=== PATIENT | female | born 1990 | race African-American/Black ===

== ENCOUNTER 2021-07-31 13:38 | Emergency (ER) | payer OTHER ==
[~2021-07-31] VITALS: Ht 149.9 cm; Wt 72.6 kg
[~2021-07-31 13:38] MED LIST: ACCUNEB SO1.25 MG/1 INH; AMOXICILLIN875 MG PO; FLONASE 0.05%50 MCG NASAL
[2021-07-31 14:12] LABS: URINE BILIRUBIN NEGATIVE (Negative); URINE BLOOD NEGATIVE (Negative); URINE CLARITY CLOUDY; URINE COLOR YELLOW; URINE GLUCOSE-RANDOM* NEGATIVE (Negative); URINE KETONES NEGATIVE (Negative); URINE LEUKOCYTES-REFLEX 2+ (Negative); URINE NITRITE-REFLEX NEGATIVE (Negative); URINE PROTEIN (DIPSTICK) NEGATIVE (Negative); URINE SPECIFIC GRAVITY 1.025 (1.005-1.035)
[2021-07-31 14:45] VITALS: BP 120/62
[2021-07-31 15:02] LABS: CASTS None Seen /LPF (None Seen); SQUAMOUS >10 Many /LPF (0-3); URINE RBC 3-10 Few /HPF (NONE SEEN); URINE WBC-REFLEX 6-15 Few /HPF (0-5)
[2021-07-31 15:03] LABS: CRYSTALS None Seen /LPF (None Seen)
[2021-08-04] MEDS ORDERED: KEFLEX250 MG PO ×2 (08:00→08:40)
== END 2021-07-31 14:45 | disposition left against medical advice (07) ==
LOC: ER 13:38
PROVIDERS: Emergency Medicine
DX: O26.891 Other specified pregnancy related conditions, first trimester (principal); N89.8 Other specified noninflammatory disorders of vagina; Z3A.01 Less than 8 weeks gestation of pregnancy; J45.909 Unspecified asthma, uncomplicated; G43.909 Migraine, unspecified, not intractable, without status migrainosus; Z98.890 Other specified postprocedural states; Z79.899 Other long term (current) drug therapy; Z79.51 Long term (current) use of inhaled steroids

== ENCOUNTER 2021-08-02 13:15 | Emergency (ER) | payer OTHER ==
[2021-08-02 14:41] LABS: URINE BILIRUBIN NEGATIVE (Negative); URINE BLOOD TRACE (Negative); URINE CLARITY CLEAR; URINE COLOR YELLOW; URINE GLUCOSE-RANDOM* NEGATIVE (Negative); URINE KETONES NEGATIVE (Negative); URINE NITRITE-REFLEX NEGATIVE (Negative); URINE PROTEIN (DIPSTICK) NEGATIVE (Negative); URINE SPECIFIC GRAVITY 1.025 (1.005-1.035); URINE UROBILINOGEN 0.2 E.U./dl (0.2-1.0)
[2021-08-02 14:43] LABS: URINE LEUKOCYTES-REFLEX 1+ (Negative)
[2021-08-02 15:29] LABS: MUCUS 4-6 Moderate strn/LPF (None Seen); SQUAMOUS 4-10 Moderate /LPF (0-3); URINE RBC 1-2 Rare /HPF (NONE SEEN); URINE WBC-REFLEX 0-5 Rare /HPF (0-5)
[2021-08-02 16:43] VITALS: BP 127/84
[2021-08-04] MEDS ORDERED: KEFLEX250 MG PO ×2 (08:00→08:40)
== END 2021-08-02 17:34 | disposition home or self-care (01) ==
LOC: ER 13:15
PROVIDERS: Nurse Practitioner Family
DX: O26.891 Other specified pregnancy related conditions, first trimester (principal); G43.909 Migraine, unspecified, not intractable, without status migrainosus; J45.909 Unspecified asthma, uncomplicated; Z3A.01 Less than 8 weeks gestation of pregnancy; Z98.890 Other specified postprocedural states; Z79.51 Long term (current) use of inhaled steroids; Z79.899 Other long term (current) drug therapy

== ENCOUNTER 2021-08-16 21:27 | Emergency (ER) | payer OTHER ==
[~2021-08-16] VITALS: Ht 149.9 cm; Wt 72.6 kg
[~2021-08-16 21:27] MED LIST changes: +KEFLEX250 MG PO
[2021-08-17 01:00] VITALS: BP 110/58
== END 2021-08-17 01:00 | disposition home or self-care (01) ==
LOC: ER 21:27
DX: O20.0 Threatened abortion (principal); O46.91 Antepartum hemorrhage, unspecified, first trimester; G43.909 Migraine, unspecified, not intractable, without status migrainosus; J45.909 Unspecified asthma, uncomplicated; Z3A.01 Less than 8 weeks gestation of pregnancy; Z79.899 Other long term (current) drug therapy

== ENCOUNTER 2021-12-11 17:11 | Emergency (ER) | payer OTHER ==
[~2021-12-11] VITALS: Ht 149.9 cm; Wt 74.4 kg
[2021-12-11 19:34] LABS: ABSOLUTE NEUTROPHILS 7.4 thou/uL (1.4-8.2); BASOPHILS 0.2 % (0.0-2.0); EOSINOPHILS 0.7 % (0.0-3.0); HEMOGLOBIN 11.7 gm/dL (12.0-15.0); LYMPHOCYTES 4.5 % (24.0-44.0); MCH 30.3 pg (26.0-34.0); MCHC 34.4 g/dL (28.0-37.0); MCV 87.9 fL (80.0-100.0); MONOCYTES 5.7 % (1.0-8.0); PLATELET COUNT 217 thou/uL (150-400); POLYS 88.9 % (36.0-66.0); RBC 3.86 mil/uL (4.20-5.00); RDW 14.1 % (10.5-14.5); WBC 8.4 thou/uL (4.0-11.0)
[2021-12-11 19:40] LABS: ANION GAP 11 mmol/L (7-16); BUN 4 mg/dL (7-18); CALCIUM 8.9 mg/dL (8.5-10.1); CHLORIDE 101 mmol/L (98-107); CO2 23 mmol/L (21-32); CREATININE 0.7 mg/dL (0.6-1.0); GLUCOSE 132 mg/dL (74-106); POTASSIUM 3.6 mmol/L (3.5-5.1); SODIUM 135 mmol/L (136-145)
[2021-12-11 19:46] LABS: ALBUMIN 2.7 g/dL (3.4-5.0); DIRECT BILIRUBIN < 0.1 mg/dL (<0.1-0.2); SGOT 15 U/L (15-37); SGPT 18 U/L (14-59); TOTAL BILIRUBIN 0.2 mg/dL (0.2-1.0); TOTAL PROTEIN 6.3 g/dL (6.4-8.2)
[2021-12-11 21:23] LABS: URINE BILIRUBIN NEGATIVE (Negative); URINE BLOOD NEGATIVE (Negative); URINE CLARITY CLEAR; URINE COLOR YELLOW; URINE GLUCOSE-RANDOM* NEGATIVE (Negative); URINE KETONES NEGATIVE (Negative); URINE NITRITE-REFLEX NEGATIVE (Negative); URINE PROTEIN (DIPSTICK) NEGATIVE (Negative); URINE UROBILINOGEN 0.2 E.U./dl (0.2-1.0)
[2021-12-11 21:29] LABS: URINE LEUKOCYTES-REFLEX 1+ (Negative)
[2021-12-11 21:31] LABS: CASTS None Seen /LPF (None Seen); MUCUS 0-3 Light strn/LPF (None Seen); SQUAMOUS 0-3 Few /LPF (0-3)
[2021-12-11 21:34] LABS: URINE RBC 1-2 Rare /HPF (NONE SEEN); URINE WBC-REFLEX 6-15 Few /HPF (0-5)
[2021-12-11 21:35] LABS: CRYSTALS None Seen /LPF (None Seen)
[2021-12-11] MEDS ORDERED: PEPCID20 MG PO (21:43)
[2021-12-11] MEDS ORDERED: CEPHALEXIN500 MG PO (21:43)
[2021-12-11 22:00] VITALS: BP 102/59
--- NOTE | 2021-12-13 07:16 | EKG ---
[address] [address] ELECTROCARDIOGRAM REPORT Name: RAMIRO ELIZABETHNIRANJAN Room #: DEP ALY Polo#: [id number] Admission: 12/11/21 Attend Phys: Discharge: 12/11/21 Date of : 86 Report #: [id number] [facility] ED Test Date: 2021-12-11 Test Time: 17:17:14 Pat Name: TIMI ELIZABETH Department: Room: Gender: F [employer]: HIRA : 1990 Requested By: Chirag Curry Order Number: [id number] MD: Lars Gilbert Measurements Intervals [place] Rate: 99 P: 50 [place]: 116 QRS: 52 QRSD: 77 T: 54 QT: 313 QTc: 402 Interpretive Statements Sinus rhythm No previous ECG available for comparison Electronically Signed On 12-13-2021 7:15:47 MANAGER PROVIDER RELATIONS by Lars Gilbert [email or web address] <ELECTRONICALLY SIGNED> By: Lars Gilbert MD, [facility] 12/13/21 0715 1717 1717 Lars Gilbert MD, FACC /EPI
== END 2021-12-11 22:04 | disposition home or self-care (01) ==
LOC: ER 17:11
PROVIDERS: Student in an Organized Health Care Education/Training Program
DX: O23.41 Unspecified infection of urinary tract in pregnancy, first trimester (principal); N39.0 Urinary tract infection, site not specified; R10.13 Epigastric pain; Z3A.13 13 weeks gestation of pregnancy; G43.909 Migraine, unspecified, not intractable, without status migrainosus; J45.909 Unspecified asthma, uncomplicated; Z98.890 Other specified postprocedural states; Z79.51 Long term (current) use of inhaled steroids; Z79.899 Other long term (current) drug therapy